=== PATIENT | female | born 1960 | race Caucasian/White ===

== ENCOUNTER 2023-05-17 22:01 | Inpatient (IN) | payer OTHER, SELFPAY ==
--- NOTE | ~2023-05-17 | XR_ITS ---
EXAMINATION: XR shoulder LT min 2V DATE: 05/17/2023 23:56 INDICATION: Left shoulder injury and tenderness. TECHNIQUE: 4 views of left shoulder were obtained. COMPARISON: None. FINDINGS: Bone alignment is normal. No acute fracture. There is mild osteoarthritis of glenohumeral j oint and moderate osteoarthritis of the acromioclavicular joint. There are old healed left rib fractu res. IMPRESSION: 1. Polyarticular osteoarthritis. Reviewed, dictated and finalized at location A.
--- NOTE | ~2023-05-17 | XR_ITS ---
EXAMINATION: XR chest 1V portable DATE: 05/19/2023 19:58 INDICATION: Fever. TECHNIQUE: A single frontal view of the chest was obtained. COMPARISON: Chest 2 views 08/04/2018 FINDINGS: There are lucencies in the lungs, consistent with emphysema. No pleural effusion or pneumot horax. The heart size is normal. Breast implants are noted. IMPRESSION: 1. Emphysema. Reviewed, dictated and finalized at location E. IMPRESSION: 1. Emphysema.
--- NOTE | ~2023-05-17 | XR_ITS ---
EXAMINATION: XR surgery orthopedic DATE: 05/20/2023 15:06 INDICATION: Right hip pinning TECHNIQUE: 5 fluoroscopic images of the right hip were obtained during procedure performed by Dr. Adelfo green. Radiologist was not present for the imaging or procedure. The amount of fluoroscopy time used d uring this procedure was 8.7 minutes. COMPARISON: 05/17/2023 FINDINGS: Again seen is a laterally impacted subcapital fracture of the proximal right femur which is not fixed with 3 cannulated lag screws. Alignment remains near-anatomic. No new fractures identified . Mild right hip osteoarthritis. IMPRESSION: 1. Lag screw fixation of a subcapital fracture of the proximal right femur which remains in near-zulema omic alignment. Reviewed, dictated and finalized at location A. IMPRESSION: 1. Lag screw fixation of a subcapital fracture of the proximal right femur whic h remains in near-anatomic alignment.
--- NOTE | ~2023-05-17 | CT_ITS ---
EXAMINATION: CT brain wo con DATE: 05/17/2023 23:14 INDICATION: Head injury. Fall. TECHNIQUE: Computed tomography (CT) of the head was performed without intravenous contrast. The mA wa s adjusted according to patient size. Iterative reconstruction technique was employed. The dose-lengt h product was 605.33 mGy-cm. COMPARISON: Head CT 10/16/2018 FINDINGS: There are scattered areas of low attenuation in the cerebral white matter. There is no intr acranial hemorrhage, acute infarction, or abnormal intracranial mass lesion. The ventricles are ashleigh l in size. There is mild mucosal thickening in the paranasal sinuses. The mastoid air cells are ashleigh l. The orbits are normal. IMPRESSION: 1. Stable mild nonspecific cerebral white matter disease, which likely represents chronic small vesse l ischemic disease. Reviewed, dictated and finalized at location A. IMPRESSION: 1. Stable mild nonspecific cerebral white matter disease, which likely represen ts chronic small vessel ischemic disease.
--- NOTE | ~2023-05-17 | XR_ITS ---
EXAMINATION: XR hip RT 2V w AP pelvis DATE: 05/17/2023 23:56 INDICATION: Right hip pain. Fall. TECHNIQUE: An anteroposterior view of the pelvis on 2 radiographs and 2 views of right hip were obtai jori. COMPARISON: None. FINDINGS: There is a subcapital fracture of right femoral neck. The distal fracture fragment demonstr ates impaction and posterior and valgus angulation. There is mild osteoarthritis of the hips. There i s severe lumbar spondylosis. IMPRESSION: 1. Subcapital fracture of right femoral neck. 2. Mild osteoarthritis of the hips. Reviewed, dictated and finalized at location A.
--- NOTE | ~2023-05-17 | XR_ITS ---
EXAMINATION: XR knee RT 3V DATE: 05/17/2023 23:56 INDICATION: Right knee injury. Fall. TECHNIQUE: 3 views of right knee were obtained. COMPARISON: None. FINDINGS: Bone alignment is normal. No fracture. There is moderate osteoarthritis of lateral compartm ent and mild osteoarthritis of medial and patellofemoral compartments. No knee joint effusion. IMPRESSION: 1. Moderate right knee osteoarthritis. Reviewed, dictated and finalized at location A.
[2023-05-17 22:06] VITALS: BP 138/79; PULSE 90; RESP 17; TEMP 36.7; O2SAT 96
--- NOTE | 2023-05-17 23:01 | PC.NURSE ---
This RN assumed care of patient.
--- NOTE | 2023-05-17 23:04 | ED.GENADULT ---
HPI - General Adult General Chief complaint: Fall Stated complaint: FALLS, R HIP & ELBOW PAIN, +ETOH Time Seen by Provider: 05/17/23 22:12 Source: patient Mode of arrival: EMS Limitations: no limitations History of Present Illness HPI narrative: This is a 63-year-old female who presents to the ED via EMS for chief complaint of 2 falls this evening prior to arrival. Patient reports that she was drinking alcohol with her family and feels she had too much to drink and passed out. Reports that she had 6 beers, and mino a shot. She states that the original fall she fell onto her left shoulder. She states after the second fall she feels she may have passed out and remembers waking up to the EMS being called by family. Reports after the second fall she had right hip pain as well as right knee pain. Denies any numbness, weakness, vision changes, chest pain, shortness of breath, abdominal pain, vomiting, headache. Related Data Allergies Allergy/AdvReac Type Severity Reaction Status Date / Time carbamazepine Allergy Mild Verified 01/03/17 00:06 lamotrigine Allergy Mild Verified 01/03/17 00:06 levetiracetam Allergy Mild Verified 01/03/17 00:06 oxcarbazepine Allergy Mild Verified 01/03/17 00:06 Penicillins Allergy Mild Swelling Verified 01/03/17 00:06 FLU SHOT AdvReac Mild Uncoded 11/06/16 20:00 [facility] Family History Family History (Updated 11/13/16 @ 15:39 by DOCTOR UNKNOWN) Mother Family history of lung cancer Family history of thyroid disease Hypertension Family history of diabetes mellitus in first degree relative Family history of malignant neoplasm of breast in first degree relative Father Hypertension Family history of diabetes mellitus in first degree relative Family history of coronary artery disease Diabetes mellitus Family history of osteoporosis Family history of throat cancer Sibling Patient's brother is Acute myocardial infarction Other Family history of congenital heart disease Social History Social History Smoking status: Former smoker Smoking end date: 11/10/05 Alcohol intake: current Exam Narrative: GENERAL: Well-appearing, well-nourished, and in no acute distress. Pleasant and conversational. HEAD: Normocephalic, atraumatic. EYES: PERRLA and EOMI. ENT: Nares clear, no rhinorrhea or epistaxis. Mucous membranes moist. Oropharynx without tonsillar hypertrophy exudate or other lesions. NECK: Supple. No adenopathy or masses. CHEST: No respiratory distress. Clear to auscultation. No wheezes rales or rhonchi HEART: Regular rate and rhythm. No murmur heard. Normal peripheral pulses. ABDOMEN: Soft, nontender, nondistended, normal active bowel sounds. MSK: She has both feet on the bed with knees flexed. Leg lengths appear equal. RLE: No deformities or bruising noted. Difficulty with internal range of motion of the right hip. She has tenderness to the lateral right hip. Pain with logroll. Tenderness throughout the right knee. LLE: Benign. RUE: Benign. LUE: Tenderness throughout the left shoulder. No deformity or bruising. No CT LS spine midline tenderness. SKIN: Scattered very superficial abrasions to the bilateral shins. No active bleeding. No overt contamination. NEURO: Alert and oriented x3. No focal deficits. No slurring of speech. She is mildly clinically intoxicated. PSYCH: Normal mood and affect. Course Vital Signs Vital signs: Vital Signs Temperature 98.1 F 05/17/23 22:06 Pulse Rate 90 05/17/23 22:06 Respiratory Rate 17 05/17/23 22:06 Blood Pressure 138/79 05/17/23 22:06 Pulse Oximetry 96 05/17/23 22:06 Temperature 98.1 F 05/17/23 22:06 Pulse Rate 90 05/17/23 22:06 Respiratory Rate 17 05/17/23 22:06 Blood Pressure 138/79 05/17/23 22:06 Pulse Oximetry 96 05/17/23 22:06 Medical Decision Making [facility] Narrative Medical decision making narrative: This is a 63-year-old female who presents t
[2023-05-17] MEDS: KETOROLAC 15 MG/ML VIAL (*BKC) IV PUSH (23:57)
[2023-05-18 00:41] LABS: Basophils Percent Auto 0.2 % (0.2-1.2); Eosinophils Percent Auto 0.2 % (0-4.4); Hematocrit 40.6 % (37.0-47.0); Hemoglobin 13.5 g/dL (12.0-15.0); Immature Granulocyte Absolute 0.02 K/mm3 (0.00-0.031); Immature Granulocyte Percent A 0.2 % (0-0.5); Lymphocytes Absolute Auto 0.54 K/mm3 (0.9-3.2); Lymphocytes Percent Auto 5.9 % (18.3-44.2); Mean Corpuscular HGB Conc 33.3 g/dl (32-36); Mean Corpuscular Hemoglobin 31.3 pg (26-34); Mean Corpuscular Volume 94.2 fl (80-100); Mean Platelet Volume 10.2 fl (7.4-10.4); Monocytes Absolute Auto 0.4 K/mm3 (0.1-0.6); Monocytes Percent Auto 4.7 % (2.6-8.5); Neutrophils Absolute Auto 8.1 K/mm3 (1.3-6.7); Neutrophils Percent Auto 88.8 % (45.5-73.1); Platelet Count Result 166 k/mm3 (150-375); Red Blood Count 4.31 M/mm3 (4.2-5.4); Red Cell Distribution Width 12.7 % (11.5-14.5); White Blood Count 9.1 K/mm3 (4.5-10.0)
[2023-05-18] MEDS: HYDROmorphone HCL INJ (*CRX) 1 MG/ML SYR 0.5 MG IV PUSH ×5 (00:49→20:26)
[2023-05-18] MEDS: ONDANSETRON INJ 4 MG/2 ML VIAL IV PUSH ×2 (00:49→05:28)
[2023-05-18 00:52] LABS: Alanine Aminotransferase 31 U/L (6-35); Albumin Level 4.7 g/dL (3.5-5.1); Alkaline Phosphatase 67 U/L (38-126); Anion Gap 10 mmol/L (8-16); Aspartate Amino Transferase 48 U/L (14-36); Bilirubin,Total 0.4 mg/dL (0.2-1.3); Blood Urea Nitrogen 8 mg/dL (7-17); Calcium 9.5 mg/dL (8.4-10.2); Carbon Dioxide 25 mmol/L (22-30); Chloride 103 mmol/L (98-107); Estimated CRCL calculation 46 ml/min; Estimated Glomerular Filt Rate 50; Glucose 101 mg/dL (65-110); Potassium 3.7 mmol/L (3.4-5.0); Sodium 138 mmol/L (137-145)
[2023-05-18 00:57] LABS: INR 0.9; Partial Thromboplastin Time 27.5 SECONDS (22.3-36.8); Prothrombin Time 12.7 Seconds (11.1-14.7)
--- NOTE | 2023-05-18 01:36 | ECG_ITS ---
Measurements Intervals [place] Rate: 87 P: 78 NV: 116 QRS: 69 QRSD: 92 T: 62 QT: 383 QTc: 462 Interpretive Statements SINUS RHYTHM WITH SHORT NV INTERVAL BORDERLINE ECG NO PREVIOUS ECG AVAILABLE FOR COMPARISON Electronically Signed On 05-18-2023 7:34:09 CDT by Brad Orr D.O.
[2023-05-18 03:32] VITALS: BMI 25.5
[2023-05-18 03:39] VITALS: BP 144/77; PULSE 90; RESP 16; TEMP 37.7; O2SAT 94
--- NOTE | 2023-05-18 03:42 | ADMGEN ---
This patient, Jennifer Mckinney, was admitted to 3 [facility] Surg Room 329-01 @0330. Patient/family oriented to hospital policies and general routines including ID bracelet, bed and alarms, visiting hours, pain management, procedures, bathroom and other care routines, personal items, smoking policy, room service/diet, and visiting hours. Information on how to activate the Rapid Response Team has been discussed. Patient/Family are encouraged to report perceived risks to care and to ask questions if they do not understand what they are told or what they should do.
[2023-05-18 06:00] VITALS: BP 116/70; PULSE 88; RESP 16; TEMP 37.3; O2SAT 93
--- NOTE | 2023-05-18 07:33 | PM.IMHP ---
H&P: HPI History of Present Illness Date/Time: 05/18/23 07:33 Chief Complaint: Fall with right hip pain and left shoulder pain. Narrative: This is a 63 year old female patient with history of COPD, hypothyroidism, hyperlipidemia and unspecified mood disorder admitted to the hospital for right hip fracture after a fall outside at home last night. Patient states she was drinking to celebrate the 13 of May with friends when she fell over a decorative boulder landing on her left shoulder. Patient states she tried to stand up after the fall and had severe right leg pain which caused her to pass out. She woke up to friends and family calling 911. Patient reports that at rest her pain is controlled but with palpation or movement of right hip pain is 7/10 aching and stabbing in nature. Patient states she had a mild headache earlier which is gone now. She reports last dose of pain medication was at 0500. Patient denies any chest pain, difficulty breathing, nausea, vomiting, abdominal pain, fever, chills or dysuria. She states she has 3 more days of Macrobid to take for a recently diagnosed UTI. Patient reports left anterior shoulder aching pain without limited range of motion. Patient reports her mood has been stable recently, no current SI/HI or hallucinations. Patient denies daily ETOH intake, denies prior withdrawal symptoms. Review of Systems Review of Systems: All systems reviewed & are unremarkable except as noted in HPI and below PMFSH Past Medical History Medical History Alopecia Balance problem Bipolar disorder Chronic bilateral low back pain with right-sided sciatica Chronic cough Chronic rhinitis COPD (chronic obstructive pulmonary disease) Dyspnea on exertion Essential hypertension GERD (gastroesophageal reflux disease) Hyperlipidemia, unspecified Hypothyroidism, unspecified Irritable bowel syndrome without diarrhea Other chronic pain Other hyperlipidemia Pneumothorax on right Vertigo Vitamin D deficiency, unspecified Family History Family History Mother Family history of lung cancer Family history of thyroid disease Hypertension Family history of diabetes mellitus in first degree relative Family history of malignant neoplasm of breast in first degree relative Father Hypertension Family history of diabetes mellitus in first degree relative Family history of coronary artery disease Diabetes mellitus Family history of osteoporosis Family history of throat cancer Sibling Patient's brother is Acute myocardial infarction Other Family history of congenital heart disease Social History Social History Smoking status: Former smoker Tobacco type: cigarettes and e-cigarettes/vaping Second hand tobacco smoke exposure: Yes Smoking end date: 11/10/05 Alcohol intake: current Drinks per week: 2 Substance use: current Substance use type: marijuana Lack of Transportation: No Lack of Food: Never True Current Housing: I Have Housing Concerned About Future Housing: No Difficulty Paying Gas/Electric Bills: No Difficulty Paying for Meds: No Currently Unemployed: No Education: High School Diploma/GED Difficulty w/ Childcare or Family Care: No Spiritual care concerns: No Meds Home Medications and Allergies Home Medications Medication Instructions Recorded Confirmed Type clonazepam 1 mg tablet 1 mg PO BID 05/18/23 05/18/23 History dextromethorphan IR 45 1 tablet PO BID 05/18/23 05/18/23 History mg-bupropion ER 105 mg biphasic tablet (Auvelity) levalbuterol tartrate 45 1 inh inhalation PRN PRN Shortness 05/18/23 05/18/23 History mcg/actuation aerosol inhaler Of Breath Or Wheezing (Xopenex HFA) levothyroxine 125 mcg tablet 125 mcg PO QAM 05/18/23 05/18/23 History nitrofurantoin 100 mg P
[2023-05-18] MEDS: ACETAMINOPHEN 325 MG TABLET 650 MG PO ×3 (09:58→20:21)
[2023-05-18] MEDS: LEVOTHYROXINE SODIUM 125 MCG TABLET PO (09:58)
[2023-05-18] MEDS: ENOXAPARIN 40 MG/0.4 ML SYRINGE SUB-Q (09:59)
--- NOTE | 2023-05-18 11:10 | PM.CNOR ---
Assessment and Plan Assessment and plan (1) Fracture of femoral neck, right, closed: Code(s): S72.001A - Fracture of unspecified part of neck of right femur, initial encounter for closed fracture Status: Acute Assessment and Plan: KALANI IS HERE FORT RIGHT HIP INJURY AND NOW WITH A RIGHT FEMORAL NECK FRACTURE. THE FRACTURE IS SOMEWHAT IN VALGUS ALIGNMENT WITH SOME MINIMAL DISPLACEMENT. SHE WILL NEED OPERATIVE TREATMENT. WE DISCUSSED THE OPTIONS OF RIGHT FEMORAL NECK REDUCTION WITH PERCUTANEOUS SCREW FIXATION VS RIGHT TOTAL HIP ARTHROPLASTY. I BELIEVE WE CAN IMPROVE THE ALIGNMENT EVEN BETTER UNDER CLOSED REDUCTION AND FLUOROSCOPY AND PROCEED WITH A PERCUTANEOUS SCREW FIXATION. WE DISCUSSED THE RISKS OF DELAYED UNION AND NON UNION AND EVENTUAL NEED FOR CONVERSION TO A TOTAL HIP REPLACEMENT IF SHE DOES NOT HEAL. WE DISCUSSED HOW CRUCIAL IT WAS FOR HER NOT TO START SMOKING AGAIN AND THAT SHE NEEDS TO KEEP AWAY FROM 2ND HAND SMOKE. HISTORY, EXAM AND RADIOGRAPHS REVIEWED WITH THE PATIENT. REFERRING PHYSICIAN RECORDS AND IMAGES REVIEWED. CONDITION, NATURE, ETIOLOGY AND COURSE OF NATURAL HISTORY REVIEWED. CONSERVATIVE AND OPERATIVE TREATMENT OPTIONS REVIEWED WELL THE RISKS AND BENEFITS OF EACH. DISCUSSED NONOPERATIVE AND OPERATIVE TREATMENT OPTIONS WITH THE PATIENT. THE PATIENT'S QUESTIONS WERE ANSWERED. THE PATIENT DESIRES OPERATIVE TREATMENT. DISCUSSED ___PERCUTANEOUS PINNING RIGHT FEMORAL NECK FRACTURE . RISKS OF SURGERY INCLUDING BUT NOT LIMITED TO NEUROVASCULAR DAMAGE, WOUND COMPLICATIONS, BLOOD CLOT, PULMONARY EMBOLUS, STROKE, GA, ANESTHETIC RISKS UP TO AND INCLUDING WERE REVIEWED. CONTINUED PAIN AND POSSIBLE DYSFUNCTION WERE EXPLAINED. NO GUARANTEES WERE OFFERED. THE PATIENT UNDERSTANDS AND WISHES TO PROCEED. History of Present Illness HPI Consult date: 05/18/23 Chief complaint: Right Hip Fracture/COPD Narrative: KALANI IS A 63 YO FEMALE WHO TRIPPED AND FELL TWICE ONTO HER RIGHT HIP. SHE HAD PAIN AND SWELLING. SHE WAS BROUGHT TO THE ED AND WAS DIAGNOSED WITH A MINIMALLY DISPLACED RIGHT FEMORAL NECK FRACTURE. SHE HAS A HISTORY OF COPD. SHE DENIES ANY OTHER INJURIES TO THE EXTREMITIES BACK OR NECK. SHE C/O RIGHT HIP AND GROIN PAIN.SHE DENIES ANY SOB OR CHEST PAIN Review of Systems Review of Systems: All systems reviewed & are unremarkable except as noted in HPI and below Respiratory: Respiratory: Reports no additional respiratory complaints, Denies cough and Denies dyspnea PMFSH Past Medical History Medical History Alopecia Balance problem Bipolar disorder Chronic bilateral low back pain with right-sided sciatica Chronic cough Chronic rhinitis COPD (chronic obstructive pulmonary disease) Dyspnea on exertion Essential hypertension GERD (gastroesophageal reflux disease) Hyperlipidemia, unspecified Hypothyroidism, unspecified Irritable bowel syndrome without diarrhea Other chronic pain Other hyperlipidemia Pneumothorax on right Vertigo Vitamin D deficiency, unspecified Family History Family History Mother Family history of lung cancer Family history of thyroid disease Hypertension Family history of diabetes mellitus in first degree relative Family history of malignant neoplasm of breast in first degree relative Father Hypertension Family history of diabetes mellitus in first degree relative Family history of coronary artery disease Diabetes mellitus Family history of osteoporosis Family history of throat cancer Sibling Patient's brother is Acute myocardial infarction Other Family history of congenital heart disease Social History Social History Smoking status: Former smoker Tobacco type: cigarettes and e-cigarettes/vaping Second hand tobacco smoke exposure: Yes Smoking end vale
[2023-05-18 14:00] VITALS: BP 102/67; PULSE 88; RESP 16; TEMP 36.6; O2SAT 92
--- NOTE | 2023-05-18 16:45 | PHAR ---
The patient's home meds of Viibryd 40mg and Auvelity 45-105mg have been verified.
[2023-05-18] MEDS: NITROFURANTOIN MONOHYD MACROCR 100 MG CAP PO (17:08)
[2023-05-18] MEDS: ROSUVASTATIN 10 MG TABLET PO (17:09)
[2023-05-18] MEDS: traZODone HCL 50 MG TABLET 100 MG PO (20:21)
[2023-05-18 21:38] VITALS: BP 151/78; PULSE 80; RESP 13; TEMP 37; O2SAT 91
[2023-05-19 05:28] LABS: Hematocrit 34.5 % (37.0-47.0); Hemoglobin 11.8 g/dL (12.0-15.0); Mean Corpuscular HGB Conc 34.2 g/dl (32-36); Mean Corpuscular Hemoglobin 31.7 pg (26-34); Mean Corpuscular Volume 92.7 fl (80-100); Mean Platelet Volume 9.4 fl (7.4-10.4); Platelet Count Result 112 k/mm3 (150-375); Red Blood Count 3.72 M/mm3 (4.2-5.4); Red Cell Distribution Width 12.5 % (11.5-14.5); White Blood Count 4.9 K/mm3 (4.5-10.0)
[2023-05-19 05:46] LABS: Alanine Aminotransferase 21 U/L (6-35); Albumin Level 3.3 g/dL (3.5-5.1); Alkaline Phosphatase 46 U/L (38-126); Anion Gap -1 mmol/L (8-16); Aspartate Amino Transferase 29 U/L (14-36); Bilirubin,Total 0.5 mg/dL (0.2-1.3); Blood Urea Nitrogen 4 mg/dL (7-17); Calcium 8.1 mg/dL (8.4-10.2); Carbon Dioxide 30 mmol/L (22-30); Chloride 96 mmol/L (98-107); Estimated CRCL calculation 62 ml/min; Estimated Glomerular Filt Rate > 60; Glucose 113 mg/dL (65-110); Potassium 3.7 mmol/L (3.4-5.0); Sodium 125 mmol/L (137-145)
[2023-05-19 05:48] VITALS: BP 128/60; PULSE 84; RESP 16; TEMP 36.8; O2SAT 91
[2023-05-19] MEDS: LEVOTHYROXINE SODIUM 125 MCG TABLET PO (06:14)
[2023-05-19 06:29] LABS: Thyroid Stimulating Hormone Reflex 0.955 uIU/mL (0.465-4.68)
[2023-05-19] MEDS: SODIUM CHLORIDE 0.9% IV 1,000 ML 100 ML IV CONT ×2 (07:34→18:21)
[2023-05-19] MEDS: UMECLIDINIUM BROMIDE 62.5 MCG ELLIPTA 1 PUFF INHALATION (07:59)
--- NOTE | 2023-05-19 09:02 | PM.IMPN ---
Progress Note: A&P Assessment and Plan (1) Fracture of femoral neck, right, closed: Code(s): S72.001A - Fracture of unspecified part of neck of right femur, initial encounter for closed fracture Status: Acute Assessment and Plan: Dr. Newberry planning to take patient to OR for repair. PT/OT after procedure. Patient expects to go home with home health for rehabilitation. (2) Hyponatremia: Code(s): E87.1 - Hypo-osmolality and hyponatremia Status: Acute Assessment and Plan: Drop in serum sodium from 138 to 125 with repeat morning draw resulting 132. Random cortisol mildly decreased at 4. Urine electrolytes pending. Will monitor and consider nephrology consult if it does not stabilize. (3) Shoulder pain, left: Code(s): M25.512 - Pain in left shoulder Status: Acute Assessment and Plan: S/P fall, pain improved today. Negative XR. PT/OT to work with patient after hip surgery (4) COPD (chronic obstructive pulmonary disease): Code(s): J44.9 - Chronic obstructive pulmonary disease, unspecified Status: Acute Assessment and Plan: Stable, no complaints of dyspnea, wheezing, cough or shortness of breath. (5) Bipolar disorder: Code(s): F31.9 - Bipolar disorder, unspecified Status: Acute Assessment and Plan: Stable, patient on Auvelity and vilazodone, continue home medications. (6) Hypothyroidism, unspecified: Code(s): E03.9 - Hypothyroidism, unspecified Status: Acute Assessment and Plan: TSH within normal range, continue home medication (7) Essential hypertension: Code(s): I10 - Essential (primary) hypertension Status: Acute Assessment and Plan: Stable, no current home medications, continue to monitor. (8) Hyperlipidemia, unspecified: Code(s): E78.5 - Hyperlipidemia, unspecified Status: Acute Assessment and Plan: Continue home medication, no changes at this time. Time Spent With Patient Time with patient: 25 - 35 minutes Subjective Date/time seen: 05/19/23 08:00 Interval history: This is a 63-year-old female patient admitted to the hospital due to fall with resulting right hip fracture. Patient states that her pain was well controlled overnight. She denies any acute needs at this time. Pending surgery today for repair with screw/pin. Labs noted to have significant change in sodium dropping to 125 from 138 yesterday. Ordered repeat BMP, urine electrolytes and cortisol. Repeat serum sodium 132. Patient denies change in urine output, denies excessive water/fluid intake, denies swelling, denies headache. She reports pain is well controlled. Patient reports mood is stable, no acute needs. Review of Systems Review of Systems: All systems reviewed & are unremarkable except as noted in HPI and below Exam Narrative: GENERAL: Thin, age appropriate appearance. Patient laying in bed, conversant. HEENT: Pupils are equally round and briskly reactive to light. Extraocular muscles are intact. Oral mucous membranes are moist without lesions. NECK: The patient has no noted JVD. No adenopathy is appreciated. No thyromegaly. CHEST/LUNGS: Lungs are clear bilaterally without rhonchi, rales, or wheezes. There is no subcutaneous air appreciated. There is no tenderness to the chest wall. HEART: The patient has a regular rate and rhythm. No murmurs, rubs, or gallops are appreciated. Distal pulses are 2+. No carotid bruits appreciated. ABDOMEN: The patient?s abdomen is? soft, nontender, and nondistended. Bowel sounds are positive. No organomegaly is appreciated. No masses are appreciated. There are no peritoneal signs. There is no [place]?s sign. There is not CVA or bladder tenderness to palpation. EXTREMITIES: Abrasions noted bilateral lower legs on anterior surface. No pedal edema. Right hip tender to palpation, limited range of motion, no shortening or rotation noted. SKIN: The patient?s skin is warm and dry,
[2023-05-19 09:17] LABS: Anion Gap 0 mmol/L (8-16); Blood Urea Nitrogen 4 mg/dL (7-17); Calcium 8.2 mg/dL (8.4-10.2); Carbon Dioxide 31 mmol/L (22-30); Chloride 101 mmol/L (98-107); Estimated CRCL calculation 71 ml/min; Estimated Glomerular Filt Rate > 60; Glucose 93 mg/dL (65-110); Potassium 3.6 mmol/L (3.4-5.0); Sodium 132 mmol/L (137-145)
[2023-05-19 09:29] LABS: Cortisol Random 4.17 ug/dL
[2023-05-19] MEDS: NITROFURANTOIN MONOHYD MACROCR 100 MG CAP PO ×2 (09:43→16:49)
[2023-05-19] MEDS: ACETAMINOPHEN 325 MG TABLET 650 MG PO ×2 (10:36→20:41)
[2023-05-19 14:00] VITALS: BP 110/63; PULSE 81; RESP 20; TEMP 36.9; O2SAT 90
[2023-05-19] MEDS: HYDROmorphone HCL INJ (*CRX) 1 MG/ML SYR 0.5 MG IV PUSH ×2 (14:02→23:57)
[2023-05-19 16:03] LABS: Potassium Urine Random 4.7 meq/L
[2023-05-19] MEDS: ROSUVASTATIN 10 MG TABLET PO (17:00)
--- NOTE | 2023-05-19 17:04 | PM.PNORT ---
Progress Note: A&P Assessment and Plan (1) Fracture of femoral neck, right, closed: Code(s): S72.001A - Fracture of unspecified part of neck of right femur, initial encounter for closed fracture Status: Acute Plan RIGHT FEMORAL NECK FRACTURE. WILL PLAN FOR PERCUTANEOUS SCREW FIXATION TOMORROW. Subjective Subjective Date/Time Seen: 05/19/23 17:04 Interval history: NO NEW COMPLAINTS. SHE IS COMFORTABLE IN BED. SHE DENIES ANY CALF PAIN Exam Extrem: Other: VSS AFEBRIL CALF SOFT NV INTACT Objective Data Vital Signs Vital Signs: Vital Signs - 24 hr 05/18/23 21:38 05/19/23 05:48 05/19/23 14:00 Temperature 37.0 C 36.8 C 36.9 C Pulse Rate 80 84 81 Respiratory Rate 13 16 20 Blood Pressure 151/78 H 128/60 110/63 Pulse Oximetry 91 91 90 Intake/Output Intake/Output: Intake & Output 05/16/23 05/17/23 05/18/23 05/19/23 23:59 23:59 23:59 23:59 Intake Total 1552 200 Output Total 950 2200 Balance 602 -2000 Meds/Results Medications: Active Medications Generic Name Dose Route Start Last Admin Trade Name Freq PRN Reason Stop Dose Admin Acetaminophen 650 mg 05/18/23 09:20 05/19/23 10:36 Acetaminophen 325 Mg Tablet PO 650 mg Q4H PRN Administration MILD Pain or Fever Clonazepam 1 mg 05/18/23 09:00 05/19/23 16:48 Clonazepam (*Crx) 0.5 Mg Tablet PO Not Given BID CARLOS Enoxaparin Sodium 40 mg 05/18/23 09:00 05/19/23 09:39 Enoxaparin 40 Mg/0.4 Ml Syringe SUB-Q Not Given DAILY CARLOS Hydromorphone HCl 0.5 mg 05/18/23 01:36 05/19/23 14:02 Hydromorphone Hcl Inj (*Crx) 1 Mg/Ml Syr IV PUSH 0.5 mg Q4H PRN Administration Pain Rated 7-10 Sodium Chloride 1,000 mls @ 100 mls/hr 05/19/23 07:25 05/19/23 07:34 Normal Saline Iv IV CONT 100 mls/hr .Q10H CARLOS Administration Levalbuterol HCl 1 puff 05/18/23 07:26 Levalbuterol Hfa (*Sp) 15 Gm Inhaler INHALATION PRN PRN Shortness Of Breath Or Wheezing Levothyroxine Sodium 125 mcg 05/18/23 07:50 05/19/23 06:14 Levothyroxine Sodium 125 Mcg Tablet PO 125 mcg DAILY@0630 CARLOS Administration Nitrofurantoin Macrocrystals 100 mg 05/18/23 17:00 05/19/23 16:49 Nitrofurantoin Monohyd Macrocr 100 Mg Cap PO 05/21/23 23:00 100 mg BID CARLOS Administration Nonform 1 tablet 05/18/23 21:00 05/19/23 09:45 Dextromethorphan- PO 06/17/23 20:59 1 tablet Bupropion [Auvelity] Q12HR CARLOS Administration 45-105 Mg Tablet,Ir ,Delayed Rel,B Nonform Vilazodone 0 mg 05/18/23 18:00 05/18/23 17:11 40 Mg Tablet PO 06/17/23 17:59 40 mg QPM CARLOS Administration Ondansetron HCl 4 mg 05/18/23 01:36 05/18/23 05:28 Ondansetron Inj 4 Mg/2 Ml Vial IV PUSH 4 mg Q4H PRN Administration Nausea Rosuvastatin Calcium 10 mg 05/18/23 18:00 05/19/23 17:00 Rosuvastatin 10 Mg Tablet PO 10 mg QPM CARLOS Administration Trazodone HCl 100 mg 05/18/23 21:00 05/18/23 20:21 Trazodone Hcl 50 Mg Tablet PO 100 mg HS CARLOS Administration Umeclidinium [place] 1 puff 05/18/23 08:00 05/19/23 07:59 Umeclidinium [place] 62.5 Mcg Ellipta INHALATION 1 puff DAILYRT CARLOS Administration Radiology Results: ITS Impressions Shoulder X-Ray 05/18/23 08:06 IMPRESSION: 1. Polyarticular osteoarthritis. Knee X-Ray 05/18/23 08:07 IMPRESSION: 1. Moderate right knee osteoarthritis. Hip/Pelvis X-Ray 05/18/23 08:08 IMPRESSION: 1. Subcapital fracture of right femoral neck. 2. Mild osteoarthritis of the hips. Head CT 05/18/23 08:24 IMPRESSION: 1. Stable mild nonspecific cerebral white matter disease, which likely represents chronic small vessel ischemic disease. Labs Labs: Laboratory Results - last 24 hr 05/19/23 05/19/23 05/19/23 05:21 05:23 09:00 WBC 4.9 RBC 3.72 L Hgb 11.8 L Hct 34.5 L MCV 92.7 MCH 31.7 MCHC 34.2 RDW 12.5 Plt Count 112 L MPV 9.4 Sodium 125 L 132 L Potassium 3.7
[2023-05-19 19:05] LABS: Sodium 131 mmol/L (137-145)
--- NOTE | 2023-05-19 19:32 | PC.NURSE ---
Addendum entered by Jaki Sargent RN 05/19/23 19:37: Dr. Donis told this nurse to advise pt to drink a lot of water and get an order for BMP in the morning. Original Note: Called Dr. Donis about pt sodium level at 1932. This nurse noticed a physician to nurse communication to call with STAT sodium levels. Recent sodium level is at 131.
[2023-05-19] MEDS: traZODone HCL 50 MG TABLET 100 MG PO (20:40)
[2023-05-19 20:41] VITALS: TEMP 38.3
[2023-05-19 22:00] VITALS: BP 150/74; PULSE 94; RESP 16; TEMP 37; TEMP 38.1; O2SAT 86
[2023-05-20] VITALS (14 sets, daily range): BP systolic 103–163; BP diastolic 54–106; PULSE 76–98; RESP 11–18; TEMP 36.1–37.7; O2SAT 90–99
[2023-05-20] MEDS: SODIUM CHLORIDE 0.9% IV 1,000 ML 100 ML IV CONT (04:27)
[2023-05-20] MEDS: LEVOTHYROXINE SODIUM 125 MCG TABLET PO (05:35)
[2023-05-20 06:42] LABS: Hematocrit 35.3 % (37.0-47.0); Hemoglobin 11.5 g/dL (12.0-15.0); Immature Platelet Fraction Pct 5.3 % (0.9-11.2); Mean Corpuscular HGB Conc 32.6 g/dl (32-36); Mean Corpuscular Hemoglobin 31.3 pg (26-34); Mean Corpuscular Volume 95.9 fl (80-100); Mean Platelet Volume 10.5 fl (7.4-10.4); Platelet Count Result 109 k/mm3 (150-375); Red Blood Count 3.68 M/mm3 (4.2-5.4); Red Cell Distribution Width 12.4 % (11.5-14.5); White Blood Count 4.6 K/mm3 (4.5-10.0)
[2023-05-20 06:50] LABS: Alanine Aminotransferase 18 U/L (6-35); Albumin Level 3.3 g/dL (3.5-5.1); Alkaline Phosphatase 51 U/L (38-126); Anion Gap 0 mmol/L (8-16); Aspartate Amino Transferase 23 U/L (14-36); Bilirubin,Total 0.5 mg/dL (0.2-1.3); Blood Urea Nitrogen 4 mg/dL (7-17); Calcium 7.8 mg/dL (8.4-10.2); Carbon Dioxide 31 mmol/L (22-30); Chloride 106 mmol/L (98-107); Estimated CRCL calculation 71 ml/min; Estimated Glomerular Filt Rate > 60; Glucose 107 mg/dL (65-110); Potassium 3.8 mmol/L (3.4-5.0); Sodium 137 mmol/L (137-145)
--- NOTE | 2023-05-20 08:39 | WPDHPUPDATE1 ---
History and Physical Update Update Date/Time: 05/20/23 08:39 History and Physical has been reviewed, including an updated exam of the patient. There are NO changes in the patient's condition. Risks, benefits, and alternatives have been discussed and questions answered. Patient agrees to proceed with procedure.
[2023-05-20] MEDS: UMECLIDINIUM BROMIDE 62.5 MCG ELLIPTA 1 PUFF INHALATION ×2 (08:55)
[2023-05-20 09:03] LABS: Appearance Urine Clear (Clear); Bacteria Urine None Seen /hpf; Bilirubin Urine Negative (Negative); Blood Urine Negative (Negative); Color Urine Yellow (Yellow); Glucose Urine UA Negative (Negative); Ketones Urine 2+ mg/dL (Negative); Leukocyte Esterase Ur Trace LEU/UL (Negative); Nitrate Urine Negative (Negative); Non Pathogenic Casts 0-2; Protein Urine Trace mg/dL (Negative); Specific Grav Ur 1.016 (1.001-1.035); Squamous Epithelial Cell Urine None seen /hpf (Few); WBC Urine 21-50 /hpf; pH Urine 6.5 (5.0-9.0)
--- NOTE | 2023-05-20 09:10 | PM.IMPN ---
Progress Note: A&P Assessment and Plan (1) Fracture of femoral neck, right, closed: Code(s): S72.001A - Fracture of unspecified part of neck of right femur, initial encounter for closed fracture Status: Acute Assessment and Plan: Patient going to the operating room for internal screw fixation today. Will involve PT OT postoperatively. (2) UTI (urinary tract infection): Code(s): N39.0 - Urinary tract infection, site not specified Status: Acute Assessment and Plan: Previously diagnosed before admission to the hospital, became afebrile overnight treated with Tylenol. Mack catheter placed overnight due to urinary retention. UA shows leukocyte esterase and white cells. Culture pending. (3) Hyponatremia: Code(s): E87.1 - Hypo-osmolality and hyponatremia Status: Acute Assessment and Plan: Sodium level had dropped to 125 but responded to normal over the course of 24 hours currently 137. IV normal saline infusing. Random cortisol mildly low. Will continue to monitor. (4) Bipolar disorder: Code(s): F31.9 - Bipolar disorder, unspecified Status: Acute Assessment and Plan: Stable on home medications (5) COPD (chronic obstructive pulmonary disease): Code(s): J44.9 - Chronic obstructive pulmonary disease, unspecified Status: Acute Assessment and Plan: Stable on home inhalers. Oxygen applied overnight. CXR unremarkable. (6) Shoulder pain, left: Code(s): M25.512 - Pain in left shoulder Status: Acute Assessment and Plan: Left shoulder pain from fall, normal mobility and pain greatly improved. (7) Hypothyroidism, unspecified: Code(s): E03.9 - Hypothyroidism, unspecified Status: Acute Assessment and Plan: Stable, continue home medications. (8) Essential hypertension: Code(s): I10 - Essential (primary) hypertension Status: Acute Assessment and Plan: Stable (9) Hyperlipidemia, unspecified: Code(s): E78.5 - Hyperlipidemia, unspecified Status: Acute Assessment and Plan: Stable Time Spent With Patient Time with patient: 25 - 35 minutes Subjective Date/time seen: 05/20/23 09:10 Interval history: Patient seen this morning she states that she still has right hip pain and is apprehensive about trying to work with therapy after surgical repair. Surgery is planned for this afternoon. Overnight patient development of fever was given Tylenol. At some point during the night they also applied oxygen at 2 L nasal cannula the patient Denies difficulty breathing. are Mack catheter was placed. We will check urinalysis, patient was currently on Macrobid for pre-existing UTI. With administration of IV fluids hyponatremia has responded over the course of 24 hours back to normal level of 137. Review of Systems Review of Systems: All systems reviewed & are unremarkable except as noted in HPI and below Exam Narrative: GENERAL: Thin, age appropriate appearance. Patient laying in bed, conversant. HEENT: Pupils are equally round and briskly reactive to light. Extraocular muscles are intact. Oral mucous membranes are moist without lesions. NECK: The patient has no noted JVD. No adenopathy is appreciated. No thyromegaly. CHEST/LUNGS: Lungs are clear bilaterally without rhonchi, rales, or wheezes. There is no subcutaneous air appreciated. There is no tenderness to the chest wall. HEART: The patient has a regular rate and rhythm. No murmurs, rubs, or gallops are appreciated. Distal pulses are 2+. No carotid bruits appreciated. ABDOMEN: The patient?s abdomen is? soft, nontender, and nondistended. Bowel sounds are positive. No organomegaly is appreciated. No masses are appreciated. There are no peritoneal signs. There is no [place]?s sign. There is not CVA or bladder tenderness to palpation. EXTREMITIES: Abrasions noted bilateral lower legs on anterior surface. No pedal edema. Right hip ten
[2023-05-20] MEDS: clonazePAM (*CRX) 0.5 MG TABLET 1 MG PO ×2 (09:17→16:58)
[2023-05-20] MEDS: ENOXAPARIN 40 MG/0.4 ML SYRINGE SUB-Q (09:18)
[2023-05-20 09:22] LABS: Add Urine Microscopic? YES
--- NOTE | 2023-05-20 10:41 | SUR.PREOP ---
1041- Dr. Recio notified patient was given 40MG lovenox at 0918. Per Dr. Recio can proceed with procedure.
[2023-05-20] MEDS: TRANEXAMIC ACID 1,000MG/ISO100 1,000 MG/100 ML BAG 200 MG IVPB (12:43)
--- NOTE | 2023-05-20 12:44 | WPDANESEPPF ---
Anes - Initial Pre Proc Eval Procedure: Operation Date: 05/20/23 14:30 Proposed Procedures p Right Hip Pinning - Thanh Recio MD Date/Time: 05/20/23 12:44 Surgeon: Vangie Alex DO Pre Op Diagnosis: Right Hip Fracture/COPD Patient Data Age: 63 Gender: F Height: 1.73 m Weight: 76.2 kg Last Vital Signs Temp 37.5 C 05/20/23 06:00 Pulse 90 05/20/23 06:00 Resp 18 05/20/23 06:00 BP 163/83 H 05/20/23 06:00 Pulse Ox 95 05/20/23 06:00 O2 Del Method Room Air 05/18/23 08:30 Allergies Allergy/AdvReac Type Severity Reaction Status Date / Time carbamazepine Allergy Mild Verified 01/03/17 00:06 lamotrigine Allergy Mild Verified 01/03/17 00:06 levetiracetam Allergy Mild Verified 01/03/17 00:06 oxcarbazepine Allergy Mild Verified 01/03/17 00:06 Penicillins Allergy Mild Swelling Verified 01/03/17 00:06 FLU SHOT AdvReac Mild Uncoded 11/06/16 20:00 Home Medications Medication Instructions Recorded Confirmed Type clonazepam 1 mg tablet 1 mg PO BID 05/18/23 05/18/23 History dextromethorphan IR 45 1 tablet PO BID 05/18/23 05/18/23 History mg-bupropion ER 105 mg biphasic tablet ([place]) levalbuterol tartrate 45 1 inh inhalation PRN PRN Shortness 05/18/23 05/18/23 History mcg/actuation aerosol inhaler Of Breath Or Wheezing (Xopenex HFA) levothyroxine 125 mcg tablet 125 mcg PO QAM 05/18/23 05/18/23 History nitrofurantoin 100 mg PO BID 05/18/23 05/18/23 History monohydrate/macrocrystals 100 mg capsule rosuvastatin 10 mg tablet 10 mg PO QPM 05/18/23 05/18/23 History tiotropium bromide 2.5 1 puff inhalation BID 05/18/23 05/18/23 History mcg/actuation mist for inhalation (Spiriva Respimat) trazodone 100 mg tablet 100 mg PO QAM 05/18/23 05/18/23 History vilazodone 40 mg tablet 40 mg PO QPM 05/18/23 05/18/23 History Laboratory Tests 05/19/23 05/19/23 05/20/23 15:31 18:43 06:22 WBC 4.6 K/mm3 (4.5-10.0) RBC 3.68 L M/mm3 (4.2-5.4) Hgb 11.5 L g/dL (12.0-15.0) Hct 35.3 L % (37.0-47.0) MCV 95.9 fl (80-100) MCH 31.3 pg (26-34) MCHC 32.6 g/dl (32-36) RDW 12.4 % (11.5-14.5) Plt Count 109 L k/mm3 (150-375) MPV 10.5 H fl (7.4-10.4) % Immature Plt Fraction 5.3 % (0.9-11.2) Sodium 131 L mmol/L 137 mmol/L (137-145) (137-145) Potassium 3.8 mmol/L (3.4-5.0) Chloride 106 mmol/L (98-107) Carbon Dioxide 31 H mmol/L (22-30) Anion Gap 0 L mmol/L (8-16) BUN 4 L mg/dL (7-17) Creatinine 0.70 mg/dL (0.7-1.0) Estim Creat Clear Calc 71 ml/min Estimated GFR > 60 (59 - ) Glucose 107 mg/dL (65-110) Calcium 7.8 L mg/dL (8.4-10.2) Total Bilirubin 0.5 mg/dL (0.2-1.3) AST 23 U/L (14-36) ALT 18 U/L (6-35) Alkaline Phosphatase 51 U/L (38-126) Total Protein 6.0 L g/dL (6.3-8.2) Albumin 3.3 L g/dL (3.5-5.1) Urine Color Urine Appearance Urine pH Ur Specific [place] Urine Protein Urine Glucose (UA) Urine Ketones Ur Blood (Man) Urine Nitrate Urine Bilirubin Urine Urobilinogen Leukocyte Esterase Rfl Urine RBC Urine WBC Ur Squamous Epith Cells Urine Bacteria Urine Casts Urine Osmolality Pending Ur Random Potassium 4.7 meq/L 05/20/23 08:18 WBC RBC Hgb Hct MCV MCH MCHC RDW Plt Count MPV % Immature Plt Fraction Sodium Potassium Chloride Carbon Dioxide Anion Gap BUN Creatinine Estim Creat Clear Calc Estimated
[2023-05-20] MEDS: LACTATED RINGERS 1,000 ML 30 ML IV CONT ×2 (12:45→15:11)
[2023-05-20] MEDS: ceFAZolin 2 GM/D5W 50 ML 2 GM/50 ML BAG IVPB ×2 (13:20→20:58)
--- NOTE | 2023-05-20 15:04 | W.PM.PROC2 ---
Procedure Note - Detailed Date of Procedure 05/20/23 Pre-op Diagnosis Right Femoral Neck Fracture Post-op Diagnosis Same Procedure Performed PERCUTANEOUS PINNING RIGHT FEMORAL NECK FRACTURE Surgeon Thanh Recio MD Anesthesia General Description of Procedure THE PATIENT WAS TAKEN TO THE OPERATING ROOM AND PLACED UNDER GENERAL ANESTHESIA. THE PATIENT WAS PLACED ON A FRACTURE TABLE. THE RIGHT LOWER EXTREMITY WAS PREPPED AND DRAPED IN THE STERILE FASHION FROM THE KNEE TO THE ILIAC CREST. THE INCISION WAS MADE ON THE LATERAL HIP JUST DISTAL TO THE GREATER TROCHANTER DOWN TO THE BONE. BLEEDERS WERE CAUTERIZED. 3 GUIDE PINS WERE PLACED THROUGH THE FEMORAL NECK AND PASSED THE FRACTURE SITE AND IN TO THE SUBCHONDRAL BONE OF THE FEMORAL HEAD. THREE 7.3 CANNULATED SCREWS WERE PLACED OVER THE GUIDE PINS AND THESE WERE SHOWN TO BE IN GOOD POSITION PER FLUOROSCOPY ON BOTH THE AP AND LATERAL VIEWS. ALL SCREWS HAD EXCELLENT BITES. THE WOUND WAS WASHED WELL. THE DEEP FASCIAL LAYER WAS APPROXIMATED WITH #1 VICRYL SUTURE, THE SUBCUTANEOUS LAYER WITH 2-0 VICRYL AND THE SKIN WAS APPROXIMATED WITH 2-0 QUIL AND DERMABOND. A STERILE DRESSING WAS PLACED. THE PATIENT WAS EXTUBATED AND SENT TO RECOVERY ROOM Estimated Blood Loss 20 Urine Output 0 Drains No Complications No immediate complications Condition Stable Disposition PACU
[2023-05-20] MEDS: fentaNYL CITRATE INJ (*CRX) 100 MCG/2 ML VIAL 25 MCG IV PUSH ×3 (15:21→15:49)
[2023-05-20] MEDS: NITROFURANTOIN MONOHYD MACROCR 100 MG CAP PO (16:58)
[2023-05-20] MEDS: HYDROcodone/acetaminophen (*CRX) 7.5-325 MG TABLET 1 TAB PO ×2 (16:58→21:09)
[2023-05-20] MEDS: ROSUVASTATIN 10 MG TABLET PO (16:59)
[2023-05-20] MEDS: SENNA/DOCUSATE SODIUM TABLET 2 TAB PO (20:57)
[2023-05-20] MEDS: ASPIRIN 325 MG ENTERIC TABLET PO (20:58)
[2023-05-20] MEDS: FAMOTIDINE 20 MG TABLET PO (20:59)
[2023-05-20] MEDS: traZODone HCL 50 MG TABLET 100 MG PO (20:59)
[2023-05-21] VITALS (9 sets, daily range): BP systolic 98–130; BP diastolic 54–78; PULSE 71–87; RESP 16–20; TEMP 36.1–36.6; O2SAT 85–97
[2023-05-21] MEDS: ceFAZolin 2 GM/D5W 50 ML 2 GM/50 ML BAG IVPB ×2 (03:05→11:26)
[2023-05-21] MEDS: LEVOTHYROXINE SODIUM 125 MCG TABLET PO (05:41)
[2023-05-21 08:13] LABS: Hematocrit 31.1 % (37.0-47.0); Hemoglobin 10.2 g/dL (12.0-15.0); Immature Granulocyte Absolute 0.02 K/mm3 (0.00-0.031); Immature Granulocyte Percent A 0.4 % (0-0.5); Immature Platelet Fraction Pct 6.2 % (0.9-11.2); Lymphocytes Absolute Auto 0.26 K/mm3 (0.9-3.2); Lymphocytes Percent Auto 5.3 % (18.3-44.2); Mean Corpuscular HGB Conc 32.8 g/dl (32-36); Mean Corpuscular Hemoglobin 31.4 pg (26-34); Mean Corpuscular Volume 95.7 fl (80-100); Mean Platelet Volume 10.6 fl (7.4-10.4); Monocytes Absolute Auto 0.3 K/mm3 (0.1-0.6); Monocytes Percent Auto 6.1 % (2.6-8.5); Neutrophils Absolute Auto 4.3 K/mm3 (1.3-6.7); Neutrophils Percent Auto 88.2 % (45.5-73.1); Platelet Count Result 122 k/mm3 (150-375); Red Blood Count 3.25 M/mm3 (4.2-5.4); Red Cell Distribution Width 12.4 % (11.5-14.5); White Blood Count 4.9 K/mm3 (4.5-10.0)
[2023-05-21 08:21] LABS: Alanine Aminotransferase 16 U/L (6-35); Alkaline Phosphatase 45 U/L (38-126); Anion Gap -1 mmol/L (8-16); Aspartate Amino Transferase 23 U/L (14-36); Bilirubin,Total 0.3 mg/dL (0.2-1.3); Blood Urea Nitrogen 9 mg/dL (7-17); Calcium 7.9 mg/dL (8.4-10.2); Carbon Dioxide 31 mmol/L (22-30); Chloride 106 mmol/L (98-107); Estimated CRCL calculation 71 ml/min; Estimated Glomerular Filt Rate > 60; Glucose 105 mg/dL (65-110); Potassium 4.3 mmol/L (3.4-5.0); Sodium 136 mmol/L (137-145)
[2023-05-21] MEDS: ASPIRIN 325 MG ENTERIC TABLET PO ×2 (08:26→20:25)
[2023-05-21] MEDS: polyethylene glycoL 3350 17 GM POWD.PACK PO (08:27)
[2023-05-21] MEDS: SENNA/DOCUSATE SODIUM TABLET 2 TAB PO ×2 (08:27→16:02)
[2023-05-21] MEDS: ENOXAPARIN 40 MG/0.4 ML SYRINGE SUB-Q (08:27)
[2023-05-21] MEDS: CELECOXIB 200 MG CAPSULE PO (08:27)
[2023-05-21] MEDS: FAMOTIDINE 20 MG TABLET PO ×2 (08:27→20:25)
[2023-05-21] MEDS: NITROFURANTOIN MONOHYD MACROCR 100 MG CAP PO ×2 (08:27→16:02)
[2023-05-21] MEDS: COSYNTROPIN 0.25 MG/ML VIAL IV PUSH (08:28)
[2023-05-21] MEDS: clonazePAM (*CRX) 0.5 MG TABLET 1 MG PO ×2 (08:37→16:02)
[2023-05-21 09:00] LABS: Cortisol Baseline 2.18 ug/dL
--- NOTE | 2023-05-21 09:13 | PM.IMPN ---
Progress Note: A&P Assessment and Plan (1) Fracture of femoral neck, right, closed: Code(s): S72.001A - Fracture of unspecified part of neck of right femur, initial encounter for closed fracture Status: Acute Assessment and Plan: Postop day 1 from percutaneous pinning right femoral neck fracture with Dr. Chen. Surgical dressing is clean dry and intact. -nonweightbearing to the right leg. Up with 2 assist to chair and commode. -PT/OT consulted -pain control with [place] and Dilaudid for breakthrough pain. Valium for muscle spasm. -bowel regimen added with MiraLax and Colace b.i.d.. -patient has received 3 of 3 bags of cefazolin for SCIP -DVT prophylaxis with SCDs, ASA 325 per Ortho, and enoxaparin. -pending rehab approval versus home health consult (2) UTI (urinary tract infection): Code(s): N39.0 - Urinary tract infection, site not specified Status: Acute Assessment and Plan: Previously diagnosed before admission to the hospital, became afebrile overnight treated with Tylenol. Mack catheter placed overnight due to urinary retention. UA shows leukocyte esterase and white cells. Culture pending. -culture still pending -patient will have completed 7 days of antibiotics after her dose tonight. Stop the Macrobid after bedtime dose. -removing Mack in starting a void trial. Bladder scan if patient has not voided within 6 hours. Can straight cath for PVR is greater than 500 mils. Should patient require more than 3 straight caths then will need to replace Mack. (3) Hyponatremia: Code(s): E87.1 - Hypo-osmolality and hyponatremia Status: Acute Assessment and Plan: Sodium level had dropped to 125 but responded to normal over the course of 24 hours currently 137. IV normal saline infusing. Random cortisol mildly low. Will continue to monitor. -resolved sodium is 136 today (4) Bipolar disorder: Code(s): F31.9 - Bipolar disorder, unspecified Status: Acute Assessment and Plan: Stable on home medications (5) COPD (chronic obstructive pulmonary disease): Code(s): J44.9 - Chronic obstructive pulmonary disease, unspecified Status: Acute Assessment and Plan: Stable on home inhalers. Oxygen applied overnight. CXR unremarkable. -patient with concerns on why she isn't receiving her Spiriva b.i.d.. We do not have Spiriva here so she was started on Umeclidinium 1 inhalation daily. Per pharmacy this is just a once a day inhalation. Patient remains on 1 L nasal cannula. Now that she is up moving around have encouraged sure coughing and deep breathing. Will have nurse wean as tolerated. (6) Shoulder pain, left: Code(s): M25.512 - Pain in left shoulder Status: Acute Assessment and Plan: Left shoulder pain from fall, normal mobility and pain greatly improved. (7) Hypothyroidism, unspecified: Code(s): E03.9 - Hypothyroidism, unspecified Status: Acute Assessment and Plan: Stable, continue home medications. (8) Essential hypertension: Code(s): I10 - Essential (primary) hypertension Status: Acute Assessment and Plan: Stable -vital signs reviewed (9) Hyperlipidemia, unspecified: Code(s): E78.5 - Hyperlipidemia, unspecified Status: Acute Assessment and Plan: Stable Subjective Date/time seen: 05/21/23 09:13 Interval history: Patient seen this morning she states that she still has right hip pain and is apprehensive about trying to work with therapy after surgical repair. Surgery is planned for this afternoon. Overnight patient development of fever was given Tylenol. At some point during the night they also applied oxygen at 2 L nasal cannula the patient Denies difficulty breathing. are Mack catheter was placed. We will check urinalysis, patient was currently on Macrobid for pre-existing UTI. With administration of IV fluids hyponatremia has responded over the cours
--- NOTE | 2023-05-21 11:51 | PCPTNOTE ---
On 05/21/23, the student, AXEL Rosa, provided care and completed [facility] documentation on this patient. I have reviewed the student's documentation and agree with the findings.
[2023-05-21] MEDS: HYDROcodone/acetaminophen (*CRX) 7.5-325 MG TABLET 1 TAB PO (12:26)
[2023-05-21] MEDS: HYDROcodone/acetaminophen (*CRX) 7.5-325 MG TABLET 2 TAB PO (16:01)
[2023-05-21] MEDS: ROSUVASTATIN 10 MG TABLET PO (17:25)
--- NOTE | 2023-05-21 17:44 | PM.PNORT ---
Progress Note: A&P Assessment and Plan (1) Fracture of femoral neck, right, closed: Code(s): S72.001A - Fracture of unspecified part of neck of right femur, initial encounter for closed fracture Status: Acute Assessment and Plan: POD 1 DOING NWELL. WOULD CONSIDER REHAB VS SNF FOR A FEW NWEEKS AT LEAST. SHE WILL CONTINUE FOR NON WEIGHT BEARING REGIMEN FOR AT LEAST 6 TO 8 WEEKS POSTOP. Subjective Subjective Date/Time Seen: 05/21/23 17:44 Interval history: POD 1 DOING WELL. SHE HAS MINIMAL HIP PAIN. SHE IS NON WEIGHT BEARING Exam Extrem: Other: VSS AFEBRILE DRESSING DRY [place] INTACT NEG HOMANS SIGN Objective Data Vital Signs Vital Signs: Vital Signs - 24 hr 05/20/23 17:45 05/20/23 18:45 05/20/23 20:18 Temperature 36.1 C L 36.4 C 37.0 C Pulse Rate 81 97 86 Respiratory Rate 14 16 16 Blood Pressure 128/73 103/58 L 117/78 Pulse Oximetry 91 97 93 Oxygen Delivery Oxygen Flow Rate 05/20/23 20:00 05/21/23 00:09 05/21/23 04:49 Temperature 36.2 C L 36.6 C Pulse Rate 86 78 79 Respiratory Rate 16 16 16 Blood Pressure 128/78 98/54 L Pulse Oximetry 93 94 93 Oxygen Delivery Nasal Cannula Oxygen Flow Rate 2 05/21/23 08:35 05/21/23 09:37 05/21/23 09:39 Temperature Pulse Rate Respiratory Rate Blood Pressure Pulse Oximetry 85 L 91 Oxygen Delivery Room Air Room Air Nasal Cannula Oxygen Flow Rate 1 05/21/23 09:38 05/21/23 13:48 Temperature 36.3 C L 36.2 C L Pulse Rate 85 83 Respiratory Rate 18 20 Blood Pressure 130/55 L 125/66 Pulse Oximetry 91 97 Oxygen Delivery Oxygen Flow Rate Intake/Output Intake/Output: Intake & Output 05/18/23 05/19/23 05/20/23 05/21/23 23:59 23:59 23:59 23:59 Intake Total 1552 1200 2250 816 Output Total 950 4550 1570 1250 Balance 542 -5545 603 -184 Meds/Results Medications: Active Medications Generic Name Dose Route Start Last Admin Trade Name Freq PRN Reason Stop Dose Admin Acetaminophen 650 mg 05/20/23 16:07 Acetaminophen 325 Mg Tablet PO Q6H PRN Mild Pain (1-3) or Fever Hydrocodone Bitart/Acetaminophen 2 tab 05/20/23 16:07 05/21/23 16:01 Hydrocodone/Acetaminophen (*Crx) 7.5-325 Mg Tablet PO 2 tab Q6H PRN Administration Pain Rated 7-10 Hydrocodone Bitart/Acetaminophen 1 tab 05/20/23 16:07 05/21/23 12:26 Hydrocodone/Acetaminophen (*Crx) 7.5-325 Mg Tablet PO 1 tab Q3H PRN Administration Pain Rated 4-6 Aspirin 325 mg 05/20/23 21:00 05/21/23 08:26 Aspirin 325 Mg Enteric Tablet PO 325 mg Q12HR CARLOS Administration Celecoxib 200 mg 05/21/23 08:00 05/21/23 08:27 Celecoxib 200 Mg Capsule PO 200 mg DAILY@0800 CARLOS Administration Clonazepam 1 mg 05/18/23 09:00 05/21/23 16:02 Clonazepam (*Crx) 0.5 Mg Tablet PO 1 mg BID CARLOS Administration Diazepam 5 mg 05/20/23 16:07 Diazepam (*Crx) 5 Mg Tablet PO Q8H PRN Muscle Spasm Docusate Sodium 100 mg 05/21/23 21:00 Docusate Sodium 100 Mg Capsule PO Q12HR CARLOS Enoxaparin Sodium 40 mg 05/18/23 09:00 05/21/23 08:27 Enoxaparin 40 Mg/0.4 Ml Syringe SUB-Q 40 mg DAILY CARLOS Administration Famotidine 20 mg 05/20/23 21:00 05/21/23 08:27 Famotidine 20 Mg Tablet PO 20 mg Q12HR CARLOS Administration Fentanyl Citrate 25 mcg 05/20/23 12:45 05/20/23 15:49 Fentanyl Citrate Inj (*Crx) 100 Mcg/2 Ml Vial IV PUSH 25 mcg Q2M PRN Administration Pain Hydromorphone HCl 0.5 mg 05/18/23 01:36 05/19/23 23:57 Hydromorphone Hcl Inj (*Crx) 1 Mg/Ml Syr IV PUSH 0.5 mg Q4H PRN Administration Pain Rated 7-10 Hydroxyzine Pamoate 50 mg 05/20/23 16:07 Hydroxyzine Pamoate 25 Mg Capsule PO Q4H PRN Itching Sodium Chloride 1,000 mls @ 100 mls/hr 05/19/23 07:25 05/20/23 20:54 Normal Saline Iv IV CONT Not Given .Q10H CARLOS Lactated Ringer's 1,000 mls @ 30 mls/hr 05/20/23 12:45 05/21/23 13:28 Lr - Lactated Ringers Iv IV CONT
[2023-05-21 20:20] LABS: Osmolality, Urine 81 mOsm/kg (50-1200)
[2023-05-21] MEDS: traZODone HCL 50 MG TABLET 100 MG PO (20:26)
[2023-05-22 04:46] VITALS: BP 121/77; PULSE 73; RESP 16; TEMP 36.3; O2SAT 93
[2023-05-22] MEDS: LEVOTHYROXINE SODIUM 125 MCG TABLET PO (05:32)
[2023-05-22 06:33] LABS: Basophils Percent Auto 0.2 % (0.2-1.2); Eosinophils Absolute Auto 0.1 K/mm3 (0-0.3); Eosinophils Percent Auto 2.2 % (0-4.4); Hematocrit 33.1 % (37.0-47.0); Hemoglobin 10.7 g/dL (12.0-15.0); Immature Granulocyte Absolute 0.01 K/mm3 (0.00-0.031); Immature Granulocyte Percent A 0.2 % (0-0.5); Lymphocytes Absolute Auto 0.66 K/mm3 (0.9-3.2); Lymphocytes Percent Auto 16.1 % (18.3-44.2); Mean Corpuscular HGB Conc 32.3 g/dl (32-36); Mean Corpuscular Hemoglobin 31.5 pg (26-34); Mean Corpuscular Volume 97.4 fl (80-100); Mean Platelet Volume 10.5 fl (7.4-10.4); Monocytes Absolute Auto 0.3 K/mm3 (0.1-0.6); Monocytes Percent Auto 7.8 % (2.6-8.5); Neutrophils Percent Auto 73.5 % (45.5-73.1); Platelet Count Result 127 k/mm3 (150-375); Red Cell Distribution Width 12.9 % (11.5-14.5); White Blood Count 4.1 K/mm3 (4.5-10.0)
[2023-05-22 06:47] LABS: Alanine Aminotransferase 16 U/L (6-35); Albumin Level 3.1 g/dL (3.5-5.1); Alkaline Phosphatase 46 U/L (38-126); Anion Gap -2 mmol/L (8-16); Aspartate Amino Transferase 26 U/L (14-36); Bilirubin,Total 0.4 mg/dL (0.2-1.3); Blood Urea Nitrogen 10 mg/dL (7-17); Calcium 8.3 mg/dL (8.4-10.2); Carbon Dioxide 35 mmol/L (22-30); Chloride 105 mmol/L (98-107); Estimated CRCL calculation 62 ml/min; Estimated Glomerular Filt Rate > 60; Glucose 86 mg/dL (65-110); Magnesium 2.2 mg/dL (1.6-2.3); Potassium 3.9 mmol/L (3.4-5.0); Sodium 138 mmol/L (137-145)
[2023-05-22] MEDS: UMECLIDINIUM BROMIDE 62.5 MCG ELLIPTA 1 PUFF INHALATION (07:52)
[2023-05-22 07:56] VITALS: PULSE 72; RESP 16; O2SAT 93
[2023-05-22] MEDS: HYDROcodone/acetaminophen (*CRX) 7.5-325 MG TABLET 2 TAB PO ×2 (08:18→16:45)
[2023-05-22] MEDS: clonazePAM (*CRX) 0.5 MG TABLET 1 MG PO ×2 (08:18→16:35)
[2023-05-22] MEDS: CELECOXIB 200 MG CAPSULE PO (08:20)
[2023-05-22] MEDS: ASPIRIN 325 MG ENTERIC TABLET PO ×2 (08:20→20:19)
[2023-05-22] MEDS: SENNA/DOCUSATE SODIUM TABLET 2 TAB PO ×2 (08:21→16:36)
[2023-05-22] MEDS: FAMOTIDINE 20 MG TABLET PO ×2 (08:21→20:20)
[2023-05-22] MEDS: ENOXAPARIN 40 MG/0.4 ML SYRINGE SUB-Q (08:21)
[2023-05-22] MEDS: polyethylene glycoL 3350 17 GM POWD.PACK PO ×2 (08:28→16:35)
[2023-05-22] MEDS: DOCUSATE SODIUM 100 MG CAPSULE PO ×2 (08:28→20:20)
[2023-05-22] MEDS: ACETAMINOPHEN 325 MG TABLET 650 MG PO (13:30)
[2023-05-22 14:00] VITALS: BP 125/69; PULSE 81; RESP 16; TEMP 35.8; O2SAT 96
--- NOTE | 2023-05-22 14:19 | PM.IMPN ---
Progress Note: A&P Assessment and Plan (1) Fracture of femoral neck, right, closed: Code(s): S72.001A - Fracture of unspecified part of neck of right femur, initial encounter for closed fracture Status: Acute Assessment and Plan: Postop day 1 from percutaneous pinning right femoral neck fracture with Dr. Chen. Surgical dressing is clean dry and intact. -nonweightbearing to the right leg. Up with 2 assist to chair and commode. -PT/OT consulted -pain control with [place] and Dilaudid for breakthrough pain. Valium for muscle spasm. -bowel regimen added with MiraLax and Colace b.i.d.. -patient has received 3 of 3 bags of cefazolin for SCIP -DVT prophylaxis with SCDs, ASA 325 per Ortho, and enoxaparin. -pending rehab approval versus home health consult (2) UTI (urinary tract infection): Code(s): N39.0 - Urinary tract infection, site not specified Status: Acute Assessment and Plan: Previously diagnosed before admission to the hospital, became afebrile overnight treated with Tylenol. Rosales catheter placed overnight due to urinary retention. UA shows leukocyte esterase and white cells. Culture pending. -culture with no growth -patient will have completed 7 days of antibiotics after her dose tonight. Stop the Macrobid after bedtime dose. -removed rosales yesterday. Spontaneously voiding. (3) Hyponatremia: Code(s): E87.1 - Hypo-osmolality and hyponatremia Status: Acute Assessment and Plan: Sodium level had dropped to 125 but responded to normal over the course of 24 hours currently 137. IV normal saline infusing. Random cortisol mildly low. Will continue to monitor. -resolved sodium is 136 today (4) Bipolar disorder: Code(s): F31.9 - Bipolar disorder, unspecified Status: Acute Assessment and Plan: Stable on home medications (5) COPD (chronic obstructive pulmonary disease): Code(s): J44.9 - Chronic obstructive pulmonary disease, unspecified Status: Acute Assessment and Plan: Stable on home inhalers. Oxygen applied overnight. CXR unremarkable. -patient with concerns on why she isn't receiving her Spiriva b.i.d.. We do not have Spiriva here so she was started on Umeclidinium 1 inhalation daily. Per pharmacy this is just a once a day inhalation. Now that she is up moving around have encouraged sure coughing and deep breathing. -Oxygen successfully weaned. Oxygen saturation WNL on room air. (6) Shoulder pain, left: Code(s): M25.512 - Pain in left shoulder Status: Acute Assessment and Plan: Left shoulder pain from fall, normal mobility and pain greatly improved. (7) Hypothyroidism, unspecified: Code(s): E03.9 - Hypothyroidism, unspecified Status: Acute Assessment and Plan: Stable, continue home medications. (8) Essential hypertension: Code(s): I10 - Essential (primary) hypertension Status: Acute Assessment and Plan: Stable -vital signs reviewed (9) Hyperlipidemia, unspecified: Code(s): E78.5 - Hyperlipidemia, unspecified Status: Acute Assessment and Plan: Stable Subjective Date/time seen: 05/22/23 14:19 Interval history: Patient seen this morning she states that she still has right hip pain and is apprehensive about trying to work with therapy after surgical repair. Surgery is planned for this afternoon. Overnight patient development of fever was given Tylenol. At some point during the night they also applied oxygen at 2 L nasal cannula the patient Denies difficulty breathing. are Rosales catheter was placed. We will check urinalysis, patient was currently on Macrobid for pre-existing UTI. With administration of IV fluids hyponatremia has responded over the course of 24 hours back to normal level of 137. 05/21: Patient seen this morning sitting up in chair after working with therapy. She appears well and states that she feels good after moving
--- NOTE | 2023-05-22 16:43 | PM.PNORT ---
Progress Note: A&P Assessment and Plan (1) Fracture of femoral neck, right, closed: Code(s): S72.001A - Fracture of unspecified part of neck of right femur, initial encounter for closed fracture Status: Acute Assessment and Plan: POD 2 DOING WELL WITH PAIN WELL CONTROLLED. DRESSING CHANGE TODAY. SHE WILL F/U IN 8 WEEKS WITH ORTHO. SHE WILL HAVE SRIDEVI REMOVED IN 2 WEEKS. ASPIRIN FOR DVT PROPHYLAXIS FOR 4 WEEKS. Subjective Subjective Date/Time Seen: 05/22/23 16:43 Interval history: POD 2 DOING WELL. PAIN WELL CONTROLLED. NO CALF PAIN Exam Extrem: Other: VSS AFEBRILE DRESSING DRY [place] INTACT NEG HOMANS SIGN WOUND CLEAN NO INFECTION. CALF SOFT NON TENDER Objective Data Vital Signs Vital Signs: Vital Signs - 24 hr 05/21/23 17:52 05/21/23 20:00 05/21/23 21:05 Temperature 36.1 C L 36.2 C L Pulse Rate 87 87 71 Respiratory Rate 20 20 16 Blood Pressure 116/65 106/75 Pulse Oximetry 94 94 95 Oxygen Delivery Nasal Cannula Oxygen Flow Rate 2 Fraction of Inspired Oxygen 05/22/23 04:46 05/22/23 07:56 05/22/23 07:56 Temperature 36.3 C L Pulse Rate 73 72 Respiratory Rate 16 16 Blood Pressure 121/77 Pulse Oximetry 93 93 Oxygen Delivery Room Air Oxygen Flow Rate Fraction of Inspired Oxygen 05/22/23 14:00 Temperature 35.8 C L Pulse Rate 81 Respiratory Rate 16 Blood Pressure 125/69 Pulse Oximetry 96 Oxygen Delivery Oxygen Flow Rate Fraction of Inspired Oxygen Intake/Output Intake/Output: Intake & Output 05/19/23 05/20/23 05/21/23 05/22/23 23:59 23:59 23:59 23:59 Intake Total 1200 2250 2536 2140 Output Total 4550 1570 1750 1999 Balance -3350 680 786 140 Meds/Results Medications: Active Medications Generic Name Dose Route Start Last Admin Trade Name Freq PRN Reason Stop Dose Admin Acetaminophen 650 mg 05/20/23 16:07 05/22/23 13:30 Acetaminophen 325 Mg Tablet PO 650 mg Q6H PRN Administration Mild Pain (1-3) or Fever Hydrocodone Bitart/Acetaminophen 2 tab 05/20/23 16:07 05/22/23 08:18 Hydrocodone/Acetaminophen (*Crx) 7.5-325 Mg Tablet PO 2 tab Q6H PRN Administration Pain Rated 7-10 Hydrocodone Bitart/Acetaminophen 1 tab 05/20/23 16:07 05/21/23 12:26 Hydrocodone/Acetaminophen (*Crx) 7.5-325 Mg Tablet PO 1 tab Q3H PRN Administration Pain Rated 4-6 Aspirin 325 mg 05/20/23 21:00 05/22/23 08:20 Aspirin 325 Mg Enteric Tablet PO 325 mg Q12HR CARLOS Administration Celecoxib 200 mg 05/21/23 08:00 05/22/23 08:20 Celecoxib 200 Mg Capsule PO 200 mg DAILY@0800 CARLOS Administration Clonazepam 1 mg 05/18/23 09:00 05/22/23 16:35 Clonazepam (*Crx) 0.5 Mg Tablet PO 1 mg BID CARLOS Administration Diazepam 5 mg 05/20/23 16:07 Diazepam (*Crx) 5 Mg Tablet PO Q8H PRN Muscle Spasm Docusate Sodium 100 mg 05/21/23 21:00 05/22/23 08:28 Docusate Sodium 100 Mg Capsule PO 100 mg Q12HR CARLOS Administration Enoxaparin Sodium 40 mg 05/18/23 09:00 05/22/23 08:21 Enoxaparin 40 Mg/0.4 Ml Syringe SUB-Q 40 mg DAILY CARLOS Administration Famotidine 20 mg 05/20/23 21:00 05/22/23 08:21 Famotidine 20 Mg Tablet PO 20 mg Q12HR CARLOS Administration Fentanyl Citrate 25 mcg 05/20/23 12:45 05/20/23 15:49 Fentanyl Citrate Inj (*Crx) 100 Mcg/2 Ml Vial IV PUSH 25 mcg Q2M PRN Administration Pain Hydromorphone HCl 0.5 mg 05/18/23 01:36 05/19/23 23:57 Hydromorphone Hcl Inj (*Crx) 1 Mg/Ml Syr IV PUSH 0.5 mg Q4H PRN Administration Pain Rated 7-10 Hydroxyzine Pamoate 50 mg 05/20/23 16:07 Hydroxyzine Pamoate 25 Mg Capsule PO Q4H PRN Itching Sodium Chloride 1,000 mls @ 100 mls/hr 05/19/23 07:25 05/21/23 14:27 Normal Saline Iv IV CONT Infused .Q10H CARLOS Infusion Lactated Ringer's 1,000 mls @ 30 mls/hr 05/20/23 12:45 05/21/23 13:28 Lr - Lactated Ringers Iv IV CONT Not Given .Q24H [facility] Lactated Ringe
[2023-05-22] MEDS: ROSUVASTATIN 10 MG TABLET PO (17:21)
[2023-05-22] MEDS: traZODone HCL 50 MG TABLET 100 MG PO (20:20)
[2023-05-22 20:35] VITALS: BP 104/69; PULSE 76; RESP 16; TEMP 36.6; O2SAT 91
[2023-05-23 04:35] VITALS: BP 128/80; PULSE 75; RESP 16; TEMP 36.6; O2SAT 90
[2023-05-23] MEDS: LEVOTHYROXINE SODIUM 125 MCG TABLET PO (05:35)
[2023-05-23 06:10] LABS: Basophils Percent Auto 0.3 % (0.2-1.2); Eosinophils Absolute Auto 0.2 K/mm3 (0-0.3); Hematocrit 33.5 % (37.0-47.0); Hemoglobin 10.9 g/dL (12.0-15.0); Immature Granulocyte Absolute 0.01 K/mm3 (0.00-0.031); Immature Granulocyte Percent A 0.3 % (0-0.5); Lymphocytes Absolute Auto 1.24 K/mm3 (0.9-3.2); Lymphocytes Percent Auto 31.2 % (18.3-44.2); Mean Corpuscular HGB Conc 32.5 g/dl (32-36); Mean Corpuscular Hemoglobin 31.3 pg (26-34); Mean Corpuscular Volume 96.3 fl (80-100); Mean Platelet Volume 9.7 fl (7.4-10.4); Monocytes Absolute Auto 0.4 K/mm3 (0.1-0.6); Monocytes Percent Auto 8.8 % (2.6-8.5); Neutrophils Absolute Auto 2.2 K/mm3 (1.3-6.7); Neutrophils Percent Auto 55.4 % (45.5-73.1); Platelet Count Result 149 k/mm3 (150-375); Red Blood Count 3.48 M/mm3 (4.2-5.4); Red Cell Distribution Width 13.1 % (11.5-14.5)
[2023-05-23 06:24] LABS: Alanine Aminotransferase 18 U/L (6-35); Albumin Level 3.3 g/dL (3.5-5.1); Alkaline Phosphatase 55 U/L (38-126); Anion Gap -1 mmol/L (8-16); Aspartate Amino Transferase 30 U/L (14-36); Bilirubin,Total 0.5 mg/dL (0.2-1.3); Blood Urea Nitrogen 10 mg/dL (7-17); Calcium 8.4 mg/dL (8.4-10.2); Carbon Dioxide 34 mmol/L (22-30); Chloride 106 mmol/L (98-107); Estimated CRCL calculation 62 ml/min; Estimated Glomerular Filt Rate > 60; Glucose 87 mg/dL (65-110); Magnesium 1.8 mg/dL (1.6-2.3); Sodium 139 mmol/L (137-145)
[2023-05-23] MEDS: HYDROcodone/acetaminophen (*CRX) 7.5-325 MG TABLET 2 TAB PO ×2 (07:54→14:24)
[2023-05-23] MEDS: polyethylene glycoL 3350 17 GM POWD.PACK PO (08:03)
[2023-05-23] MEDS: DOCUSATE SODIUM 100 MG CAPSULE PO (08:03)
[2023-05-23] MEDS: ENOXAPARIN 40 MG/0.4 ML SYRINGE SUB-Q (08:04)
[2023-05-23] MEDS: FAMOTIDINE 20 MG TABLET PO (08:04)
[2023-05-23] MEDS: SENNA/DOCUSATE SODIUM TABLET 2 TAB PO (08:04)
[2023-05-23] MEDS: clonazePAM (*CRX) 0.5 MG TABLET 1 MG PO (08:04)
[2023-05-23] MEDS: CELECOXIB 200 MG CAPSULE PO (08:05)
[2023-05-23] MEDS: ASPIRIN 325 MG ENTERIC TABLET PO (08:05)
[2023-05-23] MEDS: UMECLIDINIUM BROMIDE 62.5 MCG ELLIPTA 1 PUFF INHALATION (08:10)
[2023-05-23] MEDS: BISACODYL 10 MG SUPPOSITORY RECTAL (11:58)
[2023-05-23 13:54] VITALS: BP 142/73; PULSE 88; RESP 16; TEMP 36.4; O2SAT 95
--- NOTE | 2023-05-23 15:27 | PM.DS ---
DS: Admitting Diagnosis Discharge Date FridayMay 23 Admitting Diagnosis Bipolar disorder DS: Discharge Diagnosis Discharge Diagnosis (1) Fracture of femoral neck, right, closed: Code(s): S72.001A - Fracture of unspecified part of neck of right femur, initial encounter for closed fracture Status: Acute Assessment and Plan: Postop day 1 from percutaneous pinning right femoral neck fracture with Dr. Chen. Surgical dressing is clean dry and intact. -nonweightbearing to the right leg. Up with 2 assist to chair and commode. -PT/OT consulted -pain control with [place] and Dilaudid for breakthrough pain. Valium for muscle spasm. -bowel regimen added with MiraLax and Colace b.i.d.. -patient has received 3 of 3 bags of cefazolin for SCIP -DVT prophylaxis with SCDs, ASA 325 per Ortho, and enoxaparin. -pending rehab approval versus home health consult (2) UTI (urinary tract infection): Code(s): N39.0 - Urinary tract infection, site not specified Status: Acute Assessment and Plan: Previously diagnosed before admission to the hospital, became afebrile overnight treated with Tylenol. Rosales catheter placed overnight due to urinary retention. UA shows leukocyte esterase and white cells. Culture pending. -culture with no growth -patient will have completed 7 days of antibiotics after her dose tonight. Stop the Macrobid after bedtime dose. -removed rosales yesterday. Spontaneously voiding. (3) Hyponatremia: Code(s): E87.1 - Hypo-osmolality and hyponatremia Status: Acute Assessment and Plan: Sodium level had dropped to 125 but responded to normal over the course of 24 hours currently 137. IV normal saline infusing. Random cortisol mildly low. Will continue to monitor. -resolved sodium is 136 today (4) Bipolar disorder: Code(s): F31.9 - Bipolar disorder, unspecified Status: Acute Assessment and Plan: Stable on home medications (5) COPD (chronic obstructive pulmonary disease): Code(s): J44.9 - Chronic obstructive pulmonary disease, unspecified Status: Acute Assessment and Plan: Stable on home inhalers. Oxygen applied overnight. CXR unremarkable. -patient with concerns on why she isn't receiving her Spiriva b.i.d.. We do not have Spiriva here so she was started on Umeclidinium 1 inhalation daily. Per pharmacy this is just a once a day inhalation. Now that she is up moving around have encouraged sure coughing and deep breathing. -Oxygen successfully weaned. Oxygen saturation WNL on room air. (6) Shoulder pain, left: Code(s): M25.512 - Pain in left shoulder Status: Acute Assessment and Plan: Left shoulder pain from fall, normal mobility and pain greatly improved. (7) Hypothyroidism, unspecified: Code(s): E03.9 - Hypothyroidism, unspecified Status: Acute Assessment and Plan: Stable, continue home medications. (8) Essential hypertension: Code(s): I10 - Essential (primary) hypertension Status: Acute Assessment and Plan: Stable -vital signs reviewed (9) Hyperlipidemia, unspecified: Code(s): E78.5 - Hyperlipidemia, unspecified Status: Acute Assessment and Plan: Stable DS: Summary Hospital Course Reason for hospitalization: Fall resulting in hip fracture Hospital Course: Interval history: Patient seen this morning she states that she still has right hip pain and is apprehensive about trying to work with therapy after surgical repair.? Surgery is planned for this afternoon.? Overnight patient development of fever was given Tylenol.? At some point during the night they also applied oxygen at 2 L nasal cannula the patient Denies difficulty breathing. are Rosales catheter was placed.? We will check urinalysis, patient was currently on Macrobid for pre-existing UTI.? With administration of IV fluids hyponatremia has responded over the course of 24 hours back to n
== END 2023-05-23 15:50 | DRG 481 ==
LOC: ANHED 22:51 → ANH3MEDSUR 05-18 02:23
PROVIDERS: Internal Medicine; Nurse Practitioner; Orthopaedic Surgery; Admitting Provider Internal Medicine; Emergency Provider Physician Assistant; Visit Provider Nurse Practitioner Acute Care
PROC: 0QH634Z Insertion of Internal Fixation Device into Right Upper Femur, Percutaneous Approach (ICD-10-PCS; principal; 2023-05-20 14:30)
DX: S72.011A Unspecified intracapsular fracture of right femur, initial encounter for closed fracture (principal); E87.1 Hypo-osmolality and hyponatremia; N39.0 Urinary tract infection, site not specified; I10 Essential (primary) hypertension; J44.9 Chronic obstructive pulmonary disease, unspecified; E03.9 Hypothyroidism, unspecified; E78.5 Hyperlipidemia, unspecified; E55.9 Vitamin D deficiency, unspecified; K21.9 Gastro-esophageal reflux disease without esophagitis; K58.9 Irritable bowel syndrome, unspecified; M54.41 Lumbago with sciatica, right side; M25.512 Pain in left shoulder; R33.9 Retention of urine, unspecified; F31.9 Bipolar disorder, unspecified; W19.XXXA Unspecified fall, initial encounter; Z80.3 Family history of malignant neoplasm of breast; Z87.891 Personal history of nicotine dependence; Z80.1 Family history of malignant neoplasm of trachea, bronchus and lung
CPT/HCPCS: 36415; 70450; 71045; 73030; 73502; 73562; 80048; 80053; 81001; 82533; 83735; 83935; 84133; 84295; 84443; 85025; 85027; 85055; 85610; 85730; 86850; 86900; 86901; 87086; 93005; 94640; 96374; 96375; 97110; 97116; 97161; 97165; 97530; 97535; 99199; 99285; A9270; C1713; C1769; J0690; J0834; J1100; J1170; J1650; J1885; J2250; J2405; J2704; J3010; J7030; J7120